=== PATIENT | male | born 1955 | race Caucasian/White ===

== ENCOUNTER 2018-04-10 10:57 | Outpatient (CLI) | payer BC ==
[~2018-04-10] VITALS: Ht 180.3 cm; Wt 118.2 kg
--- NOTE | ~2018-04-10 | HEMODYNAMI ---
PATIENT:SKYLAR OAKLEY MEDICAL RECORD: [id number] : 59 LOCATION:[facility] ADMISSION DATE: 04/10/18 Generatedon:04/10/201814:12 Patient name: SKYLAR OAKLEY Patient #: [id number] SSN: D OB: 1955 Date of study: 04/10/2018 Page: Of Hemodynamic Procedure Report Patient Data Patient Demographics Procedure consent was obtained First Name: SKYLAR Gender: Male Last Name: ADIN : 1955 Patient #: [id number] Age: 62 year(s) Race: Unknown Additional ID: [id number] Contact details Address: [address] [place] [address] [facility] State: [place] City: [place] Zip code: [address] Past Medical History Allergies: No known allergies Admission Admission Data Admission Date: 04/10/2018 Admission Time: 10:57 Procedure Procedure Types Cath Procedure Diagnostic Procedure LHC LHC w/Coronaries Sedation Charges Moderate Sedation up to 15 minutes PCI Procedure Coronary Stent Coronary Stent Initial Procedure Description Procedure Date Procedure Date: 04/10/2018 Procedure Start Time: 13:46 Procedure End Time: 14:12 Procedure Staff Name Function Lucas Sin MD Performing Physician Laurel Sotomayor RT Monitor Abebe Roth RN Nurse Norma Albert RT Scrub Gabriel Kirby RT Office Equipment Mechanic Procedure Data Cath Procedure Fluoroscopy Diagnostic fluoroscopy Total fluoroscopy Time: 4.6 time: 4.6 min min Diagnostic fluoroscopy Total fluoroscopy dose: dose: 1297 mGy 1297 mGy Contrast Material Contrast Material Type Amount (ml) Isovue 300 110 Entry Location Entry Primary Successful Side Size Upsize Upsize Entry Closure Porras ccessful Closure Location (Fr) 1 (Fr) 2 (Fr) Remarks Device Remarks Radial Right 6 Fr Mechanical artery Short Compression Estimated blood loss: 10 ml Diagnostic catheters Device Type Used For End Catheter Placement DIAGNOSTIC Octaviano 110cm LV Angiography 5Fr catheter ([id number]) DIAGNOSTIC Octaviano 110cm Left Coronary 5Fr catheter ([id number]) Angiography DIAGNOSTIC Octaviano 110cm Right Coronary 5Fr catheter ([id number]) Angiography Procedure Complications No complications Procedure Medications Medication Administration Route Dosage 0.9% NaCl I.V. 100 ml/hr Oxygen etCO2 Nasal cannula 2 l/min Heparin Flush Bag added to field 2 bags (1000units/500ml NS) Lidocaine 2% added to field 20 Radial Cocktail added to field 1 syringe (Verapomil 2mg/Nitro 400mcg/Heparin 1500units) Versed I.V. 2 mg Fentanyl I.V. 100 mcg Radial Cocktail I.A. 1 syringe (Verapomil 2mg/Nitro 400mcg/Heparin 1500units) Heparin Bolus I.V. 19680 units Brilinta P.O. 180 mg Hemodynamics Rest Heart Rate: 68 (bpm) Pressure Samples Time Site Value (mmHg) Purpose Heart Use Rate(bpm) 13:49 LV 157/-12,7 EDP 77 13:50 AO 109/67(85) Pullback 69 13:50 LV 155/-4,14 Pullback 69 Gradients Valve Time Site 1 Site 2 Mean SEP/DFP Peak To Heart Use (mmHg) (sec/min) Peak Rate (mmHg) (bpm) Aortic 13:50 LV AO 15 15 46 69 155/-4,14 109/67(85) Calculations Valve P-P Mean Valve Index Valve Source Name Gradient Area Flow (cm2) Aortic 46 15 46 15 Snapshots Pre Cath Intra NCS Post Cath Vital Signs Time Heart Resp SPO2 etCO2 NIBP (mmHg) Rhythm Pain Sedation Rate (ipm) (%) (mmHg) Status Level (bpm) 13:36:55 64 19 98 0 131/89(106) NSR 0 (11) 10(A) , No pain 13:41:36 67 17 99 0 126/87(107) NSR 0 (11) 10(A) , No pain 13:46:18 68 12 92 29.2 124/71(94) NSR 0 (11) 10(A) , No pain 13:50:57 76 18 89 32.3 118/71(91) NSR 0 (11) 10(A) , No pain 13:55:40 73 15 93 36.8 119/65(90) NSR 0 (11) 9(A) , No pain 14:00:20 73 19 95 36.8 120/65(95) NSR 0 (11) 9(A) , No pain 14:04:59 69 19 96 35.3 114/63(99) NSR 0 (11) 10(A) , No pain 14:09:37 69 18 97 33 115/68(93) NSR 0 (11) 10(A) , No pain Medications Time Medication Route Dose Verified Delivered Reason Not es Effectiveness by by 13:38:24 0.9% NaCl I.V. 100 Abebe Abebe Per physician ml/hr Gonzalez Roth RN RN 13:38:33 Oxygen etCO2 2 l/min Abebe Abebe Per physician Nasal Gonzalez Roth cannula RN RN 13:38:43 Heparin Flush added 2 bags Abebe Abebe used for Bag to Lorigan Gonzalez procedure (1000units/500ml field RN RN NS) 13:38:52 Lidocaine 2% added 20ml Abebe Abebe for local to vial Lorigan Lorigan anesthetic field RN RN 13:39:06 Radial Cocktail added 1 Abebe Abebe used for (Verapomil to syringe Lorigan Gonzalez procedure 2mg/Nitro RN RN 400mcg/Heparin 1500units) 13:44:41 Versed I.V. 2 mg Abebe Abebe for sedation Gonzalez Roth RN RN 13:44:54 Fentanyl I.V. 100 mcg Abebe Abebe for sedation Gonzalez Roth RN RN 13:47:30 Radial Cocktail I.A. 1 Abebe Lucas for (Verapomil syringe Gonzalez Sin MD vasodilation 2mg/Nitro RN 400mcg/Heparin 1500units) 14:00:45 Heparin Bolus I.V. 12,000 Abebe Lucas for units Gonzalez Sin MD anticoagulation RN 14:09:10 Brilinta P.O. 180 mg Abebe Lucas for Gonzalez Sin MD antiplatelet RN therapy Procedure Log Time Note 13:24:28 Gabriel Kirby RT(R) sent for patient. Start room use. 13:24:29 Time tracking: Regular hours (M-F 7:00 - 5:00) 13:24:33 Plan of Care:Hemodynamics will remain stable., Cardiac rhythm will remain stable., Comfort level will be maintained., Respiratory function will remain adequate., Patient/ family verbilizes understanding of procedure., Procedure tolerated without complication., Recovers from procedure without complications.. 13:29:55 Patient received from Pre/Post Procedure Room to [facility] 1 Alert and oriented. Sushantsferred to table in Supine position. 13:29:56 Warm blankets applied, and bandar hugger turned on for patient comfort. 13:29:56 Correct patient and procedure confirmed by team. 13:29:57 Signed procedure consent form obtained from patient. 13:29:58 ECG and BP/O2 sat monitors applied to patient. 13:29:59 Full Disclosure recording started 13:30:15 H&P Date Dictated: 04/04/2018 Within 30 days and on chart., H&P Addendum completed by physician on day of procedure. (MUST COMPLETE FOR ALL OUTPATIENTS). 13:30:16 Pre-procedure instructions explained to patient. 13:30:17 Pre-op teaching completed and patient verbalized understanding. 13:30:19 Family in patients room. 13:30:21 Patient NPO since Midnight. 13:36:04 Vital chart was started 13:38:24 0.9% NaCl 100 ml/hr I.V. was administered by Abebe Roth RN; Per physician; 13:38:33 Oxygen 2 l/min etCO2 Nasal cannula was administered by Abebe Roth RN; Per physician; 13:38:43 Heparin Flush Bag (1000units/500ml NS) 2 bags added to field was administered by Abebe Roth RN; used for procedure; 13:38:52 Lidocaine 2% 20ml vial added to field was administered by Abebe Roth RN; for local anesthetic; 13:39:06 Radial Cocktail (Verapomil 2mg/Nitro 400mcg/Heparin 1500units) 1 syringe added to field was administered by Abebe Roth RN; used for procedure; 13:41:46 Baseline sample Acquired. 13:41:48 Rhythm: sinus rhythm 13:41:57 Patient allergic to No known allergies 13:41:59 Is the patient allergic to Iodine/contrast media? No. 13:42:01 Is patient on blood thinner?No 13:42:02 Patient diabetic? Yes. 13:42:03 If diabetic: On Metformin? No 13:42:06 Previous problem with sedation/anesthesia? No ? 13:42:08 Snore? Yes 13:42:09 Sleep apnea? No 13:42:10 Deviated septum? No 13:42:10 Opens mouth fully? Yes 13:42:11 Sticks out tongue? Yes 13:42:13 Airway obstruction? No ? 13:42:15 Dentures? No ? 13:42:18 Pre procedure: right dorsailis pedis pulse 2+ Normal; easily identifiable; not easily obliterated 13:42:20 Modified Kit's test Ulnar < 7 seconds 13:42:22 Patient pain scale 0/10 ?. 13:42:25 IV patent on arrival in left hand with 0.9% NaCl at [facility]. 13:42:27 Lab results completed and on chart. 13:42:36 Right Radial & Right Groin area was prepped with chlora-prep and draped in sterile fashion 13:42:38 Alarms reviewed by R. N. 13:42:39 Sharps counted by scrub and verified by R.N. 13:42:40 Final Timeout: patient, procedure, and site verified with staff and physician. All members of the team are in agreement. 13:42:41 Right Radial site verified by team. 13:42:44 Physical assessment completed. ASA score P 2 - A patient with mild systemic disease as per Lucas Sin MD. 13:42:47 Sedation plan: IV Moderate Sedation Medication:Versed, Fentanyl 13:42:51 Use device set Radial Dx or PCI 13:42:52 ACIST Syringe (67762) opened to sterile field. 13:42:53 Medline Cath Pack ([id number]) opened to sterile field. 13:42:53 Bag Decanter (2002S) opened to sterile field. 13:42:54 DIAGNOSTIC WIRE .035 260cm J wire (383263) opened to sterile field. 13:42:54 ACIST Hand Control (62441) opened to sterile field. 13:42:54 ACIST Manifold (68934) opened to sterile field. 13:42:56 SHEATH 6Fr Prelude Radial ([id number]) opened to sterile field. 13:44:07 Zero performed for pressure channel P1 13:44:41 Versed 2 mg I.V. was administered by Abebe Roth RN; for sedation; 13:44:54 Fentanyl 100 mcg I.V. was administered by Abebe Roth RN; for sedation; 13:46:10 Procedure started. 13:46:45 Local anesthetic to right radial artery with Lidocaine 2% by Lucas Sin MD.INITIAL ACCESS ONLY 13:47:16 A 6 Fr Short sheath was inserted into the Right Radial artery 13:47:30 Radial Cocktail (Verapomil 2mg/Nitro 400mcg/Heparin 1500units) 1 syringe I.A. was administered by Lucas Sin MD; for vasodilation; 13:48:44 A DIAGNOSTIC Octaviano 110cm 5Fr catheter (558008) was advanced over the wire and used for LV Angiography. 13:49:56 LV gram done using ABBOTT 13:49:57 LV hemodynamics recorded. 13:50:00 Injector settings: Ml/sec: 5, Volume: 15, 13:50:11 EF : 60 % 13:50:51 A DIAGNOSTIC Octaviano 110cm 5Fr catheter ([id number]) was advanced over the wire and used for Left Coronary Angiography. 13:53:52 A DIAGNOSTIC Octaviano 110cm 5Fr catheter ([id number]) was advanced over the wire and used for Right Coronary Angiography. 13:55:41 Catheter removed. 13:55:51 [place] IVUS Catheter (21854A) opened to sterile field. 13:55:57 Use device set [facility] PCI 13:56:00 TUBING High Pressure Extension Tubing (Sin) ([id number]) opened to sterile field. 13:56:01 INFLATOR Merit BasixCompak (BS7316) opened to sterile field. 13:56:06 BMW 300cm [place] 2 J wire ([id number]) opened to sterile field. 13:58:49 6 Fr XBLAD 3.5 guide catheter was inserted over the wire 14:00:45 Heparin Bolus 12,000 units I.V. was administered by Lucas Sin MD; for anticoagulation; 14:00:53 BMW wire advanced. 14:06:36 Place stent Inflation Number: 1 A ZAN RX 3.0 x 15 stent ([id number]) was prepped and advanced across the Mid LAD. The stent was deployed at 14 RASHIDA for 0:22 (min:sec). 14:07:10 Stent catheter was removed intact over wire. 14:07:11 Wire removed. 14:07:12 Guide catheter removed. 14:07:23 Sheath removed intact; hemostasis achieved with Mechanical Compression to the Right Radial artery. 14:07:55 Procedure ended.(Physican Out) 14:07:58 Fluoroscopy time 04.60 minutes. 14:08:03 Flurop Dose total: 1297 14:08:03 Fluoroscopy dose: 1297 mGy 14:08:06 Contrast amount:Isovue 300 110ml. 14:08:07 Sharps counted by scrub and verified by R.N. 14:08:09 TR band inflated with 12cc of air. 14:08:10 Insertion/operative site no bleeding no hematoma. 14:08:19 Post right radial artery:stable, clean and dry 14:08:21 Post Procedure Pulses reassessed and unchanged 14:08:23 Post-procedure physical assessment completed. ASA score P 2 - A patient with mild systemic disease as per Lucas Sin MD. 14:08:25 Post procedure rhythm: unchanged. 14:08:27 Estimated blood loss: 10 ml 14:08:45 TR BAND Standard ([id number]) opened to sterile field. 14:09:10 Brilinta 180 mg P.O. was administered by Lucas Sin MD; for antiplatelet therapy; 14:09:44 Post procedure instruction explained to patient.Patient verbalizes understanding. 14:09:46 Patient needs reinforcement of post procedure teaching. 14:10:37 Procedure type changed to Cath procedure, Diagnostic procedure, LHC, LHC w/Coronaries, Sedation Charges, Moderate Sedation up to 15 minutes, PCI procedure, Coronary Stent, Coronary Stent Initial 14:10:42 Procedure Complication : No complications 14:10:45 See physician's report for complete and final results. 14:11:26 GUIDE 6FR XBLAD 3.5 catheter ([id number]) opened to sterile field. 14:11:43 Procedure and supply charges have been captured, reviewed, submitted and are correct. 14:11:49 Vital chart was stopped 14:11:50 Report given to Pre/Post Procedure Room. 14:11:53 Patient transfered to Pre/Post Procedure Room with Stretcher. 14:12:02 Procedure ended. 14:12:02 Full Disclosure recording stopped 14:12:05 End room use (Document Last) Intervention Summary Intervention Notes Time ActionType Lesion and Equipment Used Action# Pressure Duration Attributes 14:06:36 Place stent Mid LAD ZAN RX 3.0 x 1 14 00:22 15 stent ([id number]) Device Usage Item Name Manufacture Quantity Catalog Number Hospital Part Current Minimal Lot# / Charge Number Stock Stock Serial# Code ACIST Syringe Acist 1 [id number] 546448 752340 103959 20 (38278) Medical Systems Inc Medline Cath Cardinal 1 [id number] 457012 34897 117169 5 Pack Health ([id number]) Bag Decanter Microtek 1 2001S 720196 49785 445327 5 (2001S) Medical Inc. DIAGNOSTIC WIRE St Darryl 1 617951 203865 217699 104853 30 .035 260cm J wire (104638) ACIST Hand Acist 1 58161 857078 532685 452160 5 Control (98367) Medical Systems Inc ACIST Manifold Acist 1 46942 930462 530625 449886 5 (20046) Medical Systems Inc SHEATH 6Fr Merit 1 [id number] 908962 358978 459418 5 Prelude Radial Medical ([id number]) DIAGNOSTIC Terumo 1 40-7751 829976 043443 451891 5 Octaviano 110cm 5Fr catheter (089668) Buchanan Buchanan 1 17132T 263484 503397 643818 8 [place] IVUS Catheter (11342T) TUBING High Merit 1 [id number] 599242 72694 773688 10 Pressure Medical Extension Tubing (Sin) ([id number]) INFLATOR Merit Merit 1 SW0666 479760 167071 305561 15 BasixCompak Medical (XQ3498) BMW 300cm Real 1 [id number] 950128 149850 883599 5 [place] 2 J Vascular wire ([id number]) ZAN RX 3.0 x Medtronic 1 [id number] 075199 9003719 679179 5 [id number] 15 stent ([id number]) TR BAND Terumo 1 [id number] 002272 807220 810440 40 Standard ([id number]) GUIDE 6FR XBLAD Cardinal 1 [id number] 146449 135744 232236 10 3.5 catheter Tethys [employer] ([id number]) Signature Audit [place] Stage Time Signature Unsigned Intra-Procedure 04/10/2018 Laurel 2:12:15 PM Counts RT(R) Signatures Monitor : Laurel Signature : Counts RT Date : Time : [id number] [place] [address]
[2018-04-10] MEDS ORDERED: NORVASC5 MG PO (11:15)
[2018-04-10] MEDS ORDERED: LIPITOR20 MG PO (11:18)
[2018-04-10] MEDS ORDERED: HYZAAR 100-25 T1 TAB PO (11:18)
[2018-04-10 11:25] VITALS: BP 139/87; Ht 180.3 cm; Wt 118.2 kg
[2018-04-10 11:40] LABS: BASOPHILS 0.3 % (0-2); HEMATOCRIT 44.9 % (42.0-54.0); HEMOGLOBIN 15.6 g/dL (13.5-17.5); IMMATURE GRANULOCYTES 1.6 % (0-5); LYMPHOCYTES 31.9 % (15-50); MCH 32.7 pg (26.0-34.0); MCHC 34.7 g/dL (31.0-37.0); MCV 94.1 fL (80.0-100.0); MEAN PLATELET VOLUME 9.5 fL (7.4-10.4); MONOCYTES 12.7 % (2-11); NEUTROPHILS 52.5 % (40-80); PLATELET COUNT 160 10x3/uL (130-400); RBC 4.77 10x6/uL (4.20-6.10); RDW 12.1 % (11.5-14.5); WBC 5.7 10x3/uL (4.8-10.8)
[2018-04-10 11:49] LABS: CALC OSMOLALITY 279 mosm/kg (275-300); CALCIUM 8.9 mg/dL (8.5-10.1); CARBON DIOXIDE 27.5 mmol/L (21.0-32.0); CHLORIDE - SERUM 105 mmol/L (98-107); GLUCOSE 102 mg/dL (74-106); POTASSIUM - SERUM 3.6 mmol/L (3.5-5.1); SODIUM 140 mmol/L (136-145); UREA NITROGEN 14 mg/dL (7-18); eGFR NON AFRICAN AMERICAN 81 mL/min (90-120)
[2018-04-10] MEDS ORDERED: BRILINTA90 MG PO (14:19)
[2018-04-10] MEDS ORDERED: BAYER CHEWABLE81 MG PO (14:26)
== END 2018-04-10 18:40 | disposition home or self-care (01) ==
LOC: D.CATH 10:57
PROVIDERS: Internal Medicine Cardiovascular Disease
DX: I25.110 Atherosclerotic heart disease of native coronary artery with unstable angina pectoris (principal); Z01.812 Encounter for preprocedural laboratory examination

== ENCOUNTER 2019-05-24 10:54 | Outpatient (CLI) | payer MEDICARE, BC ==
[~2019-05-24] VITALS: Ht 180.3 cm; Wt 115.5 kg
--- NOTE | ~2019-05-24 | HEMODYNAMI ---
PATIENT:SKYLAR OAKLEY MEDICAL RECORD: [id number] : 59 LOCATION:[facility] ADMISSION DATE: 05/24/19 Generatedon:05/24/201914:50 Patient name: SKYLAR OAKLEY Patient #: [id number] SSN: [id number] : 1955 Date of study: 05/24/2019 Page: Of Hemodynamic Procedure Report Patient Data Patient Demographics Procedure consent was obtained First Name: SKYLAR Gender: Male Last Name: ADIN : 1955 Patient #: [id number] Age: 63 year(s) Race: SSN: [id number] Additional ID: [id number] Contact details Address: [address] [place] [address] ROAD State: [place] City: [place] Zip code: [address] Past Medical History Allergies: No known allergies Admission Admission Data Admission Date: 05/24/2019 Admission Time: 10:54 Height (in.): 70.87 BSA: 2.33 (m2) Height (cm.): 180 BMI: 35.49 (kg/m2) Weight (lbs.): 253.53 Weight (kg.): 115 Lab Results Lab Result Date: 05/24/2019 Lab Result Time: 0:00 Biochemistry Name Units Result Min Max BUN mg/dl 14 --(--*-)-- 7 18 Creatinine mg/dl 0.9 --(-*--)-- 0.6 1.3 eGFR ml/min 90 --(*---)-- 90 120 NONAFRICAN CBC Name Units Result Min Max Hematocrit % 45.8 --(-*--)-- 42 54 Hemoglobin g/dl 15.8 --(--*-)-- 13.5 17.5 Procedure Procedure Types Cath Procedure Diagnostic Procedure PPM/ICD PPM Dual Implant Sedation Charges Moderate Sedation up to 45 minutes Procedure Description Procedure Date Procedure Date: 05/24/2019 Procedure Start Time: 13:55 Procedure Staff Name Function Jamari Park MD Performing Physician Ever Colon MD Assisting physician Norma Albert RT Monitor Susan De La Cruz RT Monitor Enriqueta Horton RN Nurse Molly Zamora RT Scrub Procedure Data Cath Procedure Fluoroscopy Diagnostic fluoroscopy Total fluoroscopy Time: time: 10.6 min 10.6 min Diagnostic fluoroscopy Total fluoroscopy dose: 450 dose: 450 mGy mGy Estimated blood loss: 10 ml Procedure Complications No complications Procedure Medications Medication Administration Route Dosage Oxygen etCO2 Nasal cannula 2 l/min Ancef (1Gm/50ml NS) I.V.P.B 1 g Ancef Irrigation Topical 1 g (1gm/500ml NS) Lidocaine 1% added to field 20 0.9% NaCl I.V. Versed I.V. 2 mg Fentanyl I.V. 100 mcg Versed I.V. 2 mg Fentanyl I.V. 100 mcg Versed I.V. 1 mg Versed I.V. 1 mg Versed I.V. 1 mg Fentanyl I.V. 50 mcg Hemodynamics Rest BSA: 2.33 (m2) O2 Consumption: Estimated: 316.88 (ml/min) O2 Consumption indexed : Estimated:136 (ml/min/m) Pre Cath Intra NCS Post Cath Vital Signs Time Heart Resp SPO2 etCO2 NIBP (mmHg) Rhythm Pain Sedation Rate (ipm) (%) (mmHg) Status Level (bpm) 13:46:08 72 20 98 34.3 150/79(104) NSR (Missing) 10(A) 13:51:23 39 20 97 13.4 133/75(113) SB (Missing) 10(A) 13:56:26 40 14 97 25.3 141/76(108) SB (Missing) 9(A) 14:01:21 34 18 97 12.6 140/79(131) SB (Missing) 9(A) 14:06:42 73 26 97 19.4 133/81(120) NSR (Missing) 9(A) 14:11:14 39 20 98 11.2 134/73(100) SB (Missing) 9(A) 14:17:42 40 17 98 22.4 137/72(101) SB (Missing) 9(A) 14:24:42 54 18 97 27.6 125/72(87) NSR (Missing) 9(A) 14:28:43 39 17 98 12.6 132/71(99) NSR (Missing) 9(A) 14:34:20 69 13 96 11.1 130/81(103) NSR (Missing) 9(A) 14:40:10 71 14 98 25.3 135/86(101) NSR (Missing) 10(A) Medications Time Medication Route Dose Verified Delivered Reason Notes Effectiv eness by by 13:38:50 Ancef I.V.P.B 1 g Jamari Buffie used for (1Gm/50ml Xavier Horton mds coordinator NS) 13:44:40 Oxygen etCO2 2 Jamari Misaelie used for Nasal l/min Xavier Horton mds coordinator cannula 13:44:59 Ancef Topical 1 g Jamari Douglasie used for Irrigation Xavier Horton mds coordinator (1gm/500ml NS) 13:45:10 Lidocaine added 20ml Jamari Curtis for local 1% to vial St Bandar Colon MD anesthetic field 13:45:20 0.9% NaCl I.V. kvo Jamari Robison Per ml/hr St Bandar Horton RN physician 13:52:35 Versed I.V. 2 mg Jamari Misaelie for Xavier Horton RN sedation 13:52:42 Fentanyl I.V. 100 Jamari Buffie for mcg Xavier Horton RN sedation 13:55:49 Versed I.V. 2 mg Jamari Buffie for Xavier Horton RN sedation 13:55:55 Fentanyl I.V. 100 Jamari Buffie for [facility] [place] Xavier Horton RN sedation 14:08:56 Versed I.V. 1 mg Jamari Douglasie for Xavier Horton RN sedation 14:19:49 Versed I.V. 1 mg Jamari Douglasie for Xavier Horton RN sedation 14:31:13 Versed I.V. 1 mg Jamari Buffie for Xavier Horton RN sedation 14:33:17 Fentanyl I.V. 50 Jamari Buffie for [facility] [place] Xavier Horton RN sedation Procedure Log Time Note 13:16:36 Informed consent obtained and on chart 13:18:52 Enriqueta Horton RN sent for patient. Start room use. 13:18:54 Time tracking: Regular hours (M-F 7:00 - 5:00) 13:19:01 Plan of Care:Hemodynamics will remain stable., Cardiac rhythm will remain stable., Comfort level will be maintained., Respiratory function will remain adequate., Patient/ family verbilizes understanding of procedure., Procedure tolerated without complication., Recovers from procedure without complications.. 13:19:10 H&P Date Dictated: 05/24/2019 H&P Addendum completed by physician on da y of procedure. (MUST COMPLETE FOR ALL OUTPATIENTS), New H&P dictated by physician.. 13:19:12 Pre-procedure instructions explained to patient. 13:19:14 Pre-op teaching completed and patient verbalized understanding. 13:19:16 Family in waiting room. 13:19:19 Patient NPO since Midnight. 13:19:27 Patient allergic to No known allergies 13:19:38 Is the patient allergic to Iodine/contrast media? No. 13:22:56 Lab Result : Hemoglobin 15.8 g/dl 13::56 Lab Result : Hematocrit 45.8 % 13:22:56 Lab Result : eGFR NONAFRICAN 90 ml/min 13:22:56 Lab Result : BUN 14 mg/dl 13:22:56 Lab Result : Creatinine 0.9 mg/dl 13:23:17 Medtronic representative personal service ANN CAMERON present for procedure. 13:23:48 Patient Height : 70.87 inches 13:23:57 Patient Weight : 253.53 lbs 13:26:00 Use device set TISH PPM 13:26:06 2-0 Ticron Multipack ([id number]) opened to sterile field. 13:26:07 3-0 Vicryl Single Pack [id number] opened to sterile field. 13:26:08 5-0 Monocryl PS2 [id number] opened to sterile field. 13:26:10 Cautery Tip Petroleum Production Engineer opened to sterile field. 13:26:12 Cautery Pushbutton Pencil opened to sterile field. 13:26:14 Mepilex Dressing ([id number]) opened to sterile field. 13:26:19 Immobilizer Large opened to sterile field. 13:27:[address] Generator [id number] opened to sterile field. 13:27:46 Medtronic 4074-58 PPM Lead opened to sterile field. 13:27:47 Medtronic 4574-53 PPM Lead opened to sterile field. 13:30:13 Patient received from Pre/Post Procedure Room to [facility] 3 Alert and oriented. Tansferred to table in Supine position. 13:31:58 Warm blankets applied, and bandar hugger turned on for patient comfort. 13:32:00 Correct patient and procedure confirmed by team. 13:32:39 Is patient on blood thinner?No 13:32:42 Patient diabetic? No. 13:32:44 ----Pre-sedation anethsthesia assessment.---- 13:32:49 Previous problem with sedation/anesthesia? No ? 13:32:52 Snore? No 13:32:54 Sleep apnea? No 13:32:57 Deviated septum? No 13:33:00 Opens mouth fully? Yes 13:33:01 Sticks out tongue? Yes 13:33:05 Airway obstruction? No ? 13:33:10 Dentures? No ? 13:33:14 - 13:34:52 Patient pain scale 0/10 ?. 13:35:10 IV patent on arrival in left forearm with 0.9% NaCl at KVO. 13:35:20 Lab results completed and on chart. 13:35:31 Left chest area was prepped with chlora-prep and draped in sterile fashion 13:35:33 Alarms reviewed by R. N. 13:35:35 Sharps counted by scrub and verified by R.N. 13:38:50 Ancef (1Gm/50ml NS) 1 g I.V.P.B was administered by Enriqueta Horton RN; use d for procedure; Verbal order read back and verified. 13:41:57 Vital chart was started 13:44:40 Oxygen 2 l/min etCO2 Nasal cannula was administered by Enriqueta Horton RN; used for procedure; Verbal order read back and verified. 13:44:59 Ancef Irrigation (1gm/500ml NS) 1 g Topical was administered by Enriqueta Horton RN; used for procedure; Verbal order read back and verified. 13:45:10 Lidocaine 1% 20ml vial added to field was administered by Ever Colon MD; for local anesthetic; Verbal order read back and verified. 13:45:20 0.9% NaCl kvo ml/hr I.V. was administered by Enriqueta Horton RN; Per physician; Verbal order read back and verified. 13:49:57 Pre sharps counted by scrub and verified by RN: Sutures: 7; Sponges: 5; Stick needles: 2; Skin needles: 2; Blade: 1; Cautery: 1 13:50:03 Grounding pad site Left thigh. 13:50:07 Grounding pad site free from injury. 13:50:22 Physician arrived 13:50:22 --------ALL STOP TIME OUT------ 13:50:23 Final Timeout: patient, procedure, and site verified with staff and physician. All members of the team are in agreement. 13:50:28 Left chest site verified by team. 13:50:38 Fire Safety Assessment: A--An alcohol-based skin anteseptic being used preoperatively., B--The operative or invasive procedure is being performed above the xiphoid process or in the oropharynx., C--Open oxygen or nitrous oxide is being used. 13:50:44 Physical assessment completed. ASA score P 2 - A patient with mild systemic disease as per Jamari Park MD. 13:50:51 Sedation plan: IV Moderate Sedation Medication:Versed, Fentanyl 13:52:35 Versed 2 mg I.V. was administered by Enriqueta Horton RN; for sedation; Verbal order read back and verified. 13:52:42 Fentanyl 100 mcg I.V. was administered by Enriqueta Horton RN; for sedation; Verbal order read back and verified. 13:55:04 Procedure started. 13:55:04 Full Disclosure recording started 13:55:29 Lidocaine 1% was administered to left subclavicular area by Ever Colon MD . 13:55:49 Versed 2 mg I.V. was administered by Enriqueta Horton RN; for sedation; Verbal order read back and verified. 13:55:55 Fentanyl 100 mcg I.V. was administered by Enriqueta Horton RN; for sedation; Verbal order read back and verified. 13:57:43 Incision made to left subclavicular area. 14:00:02 Generator pocket made/opened. 14:01:30 Left subclavian vein accessed with 7Fr Peel Away Sheath. 14:01:37 Left subclavian vein accessed with 7Fr Peel Away Sheath. 14:02:55 Ventricular lead inserted and advanced. 14:03:18 Atrial lead inserted and advanced. 14:08:56 Versed 1 mg I.V. was administered by Enriqueta Horton RN; for sedation; Verbal order read back and verified. 14:12:11 Ventricular lead positioned. 14:12:16 Ventricular lead tested. 14:16:47 Atrial lead positioned. 14:16:50 Atrial lead tested. 14:17:56 Peel-a-way sheath was split and removed. 14:18:03 Peel-a-way sheath was split and removed. 14:18:43 Atrial lead attachment was completed with 2-0 ticron. 14:18:50 Ventricular lead attachment was completed with 2-0 ticron. 14:19:49 Versed 1 mg I.V. was administered by Enriqueta Horton RN; for sedation; Verbal order read back and verified. 14:25:32 VENTRICLE LEAD NO LONGER CAPTURING, NEEDS REPOSITIONED. 14:28:28 Ventricular lead dislodged. 14:28:33 Ventricular lead repositioned. 14:31:13 Versed 1 mg I.V. was administered by Enriqueta Horton RN; for sedation; Verbal order read back and verified. 14:33:17 Fentanyl 50 mcg I.V. was administered by Enriqueta Horton RN; for sedation; Verbal order read back and verified. 14:33:22 Ventricular lead tested. 14:34:33 Atrial lead attachment was completed with 2-0 ticron. 14:34:39 Ventricular lead attachment was completed with 2-0 ticron. 14:34:56 PPM Dual was attached to lead(s) and inserted into pocket. 14:35:10 PPM Dual was inserted subcutaneously to left chest. 14:35:15 Device pocket was irrigated with Ancef. 14:37:04 Subcutaneous closure was completed with 3-0 vicryl plus. 14:37:16 Skin closure was completed with 5-0 monocryl. 14:38:59 Parameters-- Generator: Mode: DDDR. Lower Rate: 60bpm. Upper Rate: 120bpm. 14:40:06 Vital chart was stopped 14:40:07 Vital chart was started 14:40:19 Parameters--Ventricular P/R Wave: 8.2mV. Current: 0.1mA; Threshold: .5V ; Impedence: 1054OHMS. 14:41:05 Parameters--Atrial P/R Wave: 2.1mV. Current: 0.1mA; Threshold: 0.3V; Impedence: 628OHMS. 14:41:18 Lt Chest incision was dressed with Mepilex dressing. 14:41:39 Post sharps counted by scrub and verified by RN: Sutures: 7; Sponges: 5 ; Stick needles: 2; Skin needles: 2; Blade: 1; Cautery: 1 14:41:48 Procedure ended.(Physican Out) 14:42:11 Fluoroscopy time 10.60 minutes. 14:42:16 Fluoroscopy dose: 450 mGy 14:42:16 Flurop Dose total: 450 14:42:26 Dose Area Product 5440.18 mGy/cm. 14:42:31 Sharps counted by scrub and verified by R.N. 14:42:48 Post-procedure physical assessment completed. ASA score P 2 - A patient with mild systemic disease as per Jamari Park MD. 14:42:57 Post procedure rhythm: paced 14:43:03 Estimated blood loss: 10 ml 14:43:06 Post procedure instruction explained to patient.Patient verbalizes understanding. 14:43:07 Patient needs reinforcement of post procedure teaching. 14:43:58 Procedure type changed to Cath procedure, Diagnostic procedure, PPM/ICD , PPM Dual Implant, Sedation Charges, Moderate Sedation up to 45 minutes 14:44:44 Procedure and supply charges have been captured, reviewed, submitted an d are correct. 14:44:53 Procedure Complication : No complications 14:45:07 Operative report dictated upon procedure completion. 14:45:09 See physician's report for complete and final results. 14:45:16 Report given to Med II. 14:45:25 Patient transfered to Med II with Bed. 14:46:00 End room use (Document Last) 14:50:37 Vital chart was stopped Device Usage Item Name Manufacture Quantity Catalog Hospital Part Current Minima l Lot# / Serial# Number Charge Number Stock Stock Code 2-0 Ticron Ethicon 2 [id number] [id number] [id number] 5 Multipack ([id number]) 3-0 Vicryl Ethicon 1 [id number] 109043 267614 800163 5 Single Pack [id number] 5-0 Monocryl Ethicon 1 [id number] 794998 319646 167294 5 PS2 Y495G Cautery Tip Microtek 1 [id number] 404469 262083 396707 5 Petroleum Production [employer] Cautery Microtek 1 [id number] 67290 117336 5 Pushbutton [employer] Inc[employer] Pencil Mepilex Cardinal 1 [id number] 928386 031203 190253 5 [facility] ([id number]) Immobilizer Cardinal 1 [id number] 890011 041245 086162 5 [facility] Medtronic Medtronic 1 [id number] 839892 9821093 863465 [id number] [id number] Generator [id number] Medtronic Medtronic 1 4074-58 936369 653231 153410 5 [id number] 4074-58 PPM [id number] Lead Medtronic Medtronic 1 4574-53 956930 174542 837013 5 [id number] 4574-53 PPM [id number] Lead Signature Audit [place] Stage Time Signature Unsigned Intra-Procedure 05/24/2019 Susan 2:49:14 PM Dorothy RT(R) (CV) Intra-Procedure 05/24/2019 Enriqueta Horton RN 2:50:01 PM Intra-Procedure 05/24/2019 Jamari Mason 2:50:35 PM Bandar [address] [place] [address]
[~2019-05-24 10:54] MED LIST: BAYER CHEWABLE81 MG PO; BRILINTA90 MG PO; HYZAAR 100-25 T1 TAB PO; LIPITOR20 MG PO; NORVASC5 MG PO
[2019-05-24] MEDS ORDERED: ZYLOPRIM300 MG PO (11:14)
[2019-05-24 11:31] VITALS: BP 153/93; BMI 35.5
[2019-05-24 11:42] LABS: HEMATOCRIT 45.8 % (42.0-54.0); HEMOGLOBIN 15.8 g/dL (13.5-17.5); MCH 32.9 pg (26.0-34.0); MCHC 34.5 g/dL (31.0-37.0); MCV 95.4 fL (80.0-100.0); MEAN PLATELET VOLUME 10.3 fL (7.4-10.4); RBC 4.8 10x6/uL (4.20-6.10); WBC 6.4 10x3/uL (4.8-10.8)
[2019-05-24 11:50] LABS: APTT 27.8 SECONDS (22.8-39.4); PROTIME 12.7 SECONDS (11.6-15.0)
[2019-05-24 11:55] LABS: CALC OSMOLALITY 281 mosm/kg (275-300); CALCIUM 9.3 mg/dL (8.5-10.1); CARBON DIOXIDE 25.1 mmol/L (21.0-32.0); CHLORIDE - SERUM 104 mmol/L (98-107); CREATININE - SERUM 0.9 mg/dL (0.6-1.3); GLUCOSE 104 mg/dL (74-106); POTASSIUM - SERUM 3.9 mmol/L (3.5-5.1); SODIUM 141 mmol/L (136-145); UREA NITROGEN 14 mg/dL (7-18); eGFR NON AFRICAN AMERICAN > 90 mL/min (90-120)
--- NOTE | 2019-05-24 15:20 | NUR ---
RECEIVED PT FROM [facility] SR VIA BED IN STABLE CONDITION VSS TIESHAG C/D/I TO LT CHEST SLING INTACT TO LT ARM IV PATENT AT KEEP OPEN TO LFA SITE FREE OF REDNESS OR EDEMA TELEMETRY NOTED WITH PACED BEATS RATE 63 NAD NOTED
[2019-05-24 15:29] VITALS: BP 128/89; Ht 180.3 cm; Wt 115.5 kg
[2019-05-24 17:40] VITALS: BP 126/81
--- NOTE | 2019-05-24 19:00 | NUR ---
PT RESTING IN BED.HAS LEFT ARM IN SLING. DRESSING TO LEFT CHEST IS C/D/I. HE DENIES PAIN OR NEEDS. NO DISTRESS NOTED. BED LOW. CALL LIGHT IN REACH.
[2019-05-24 20:00] VITALS: BP 116/73
[2019-05-25 04:30] VITALS: BP 139/82
--- NOTE | 2019-05-25 07:15 | NUR ---
RECEIVED PT IN BED AAOX4 RESP UNLABORED SKIN W/D COLOR WNL DRSG C/D/I TO LT CHEST WITH SLING TO LEFT ARM PACED AT 73 NAD NOTED
--- NOTE | 2019-05-25 09:18 | NUR ---
PATIENT HAS NOT RECEVIED FLU SHOT PRIOR TO ADMISSION. WHEN ASKED, HE WANTS TO FOLLOW UP WITH HIS PRIMARY, DR SALO PRATT.
[2019-05-25 09:39] VITALS: BP 148/91
--- NOTE | 2019-05-25 10:05 | NUR ---
REVIEWED DISCHARGE INSTRUCTIONS WITH PT AND STATE UNDERSTANDING COPY GIVEN DCD SALINE LOCK TO LFA WITH IV CATHETER INTACT SITE FREE OF REDNESS OR EDEMA PT DISCHARGED HOME IN STABLE CONDITION VIA W/C WITH ALL PERSONAL BELONGINGS
--- NOTE | 2019-05-28 13:29 | OP ---
PATIENT NAME: SKYLAR OAKLEY MEDICAL RECORD: [id number] :59 LOCATION:D.CAT ADMISSION DATE: SURGEON: SALO MORELOS MD DATE OF OPERATION: 05/24/2019 PROCEDURE: Lead portion of permanent pacemaker placement. INDICATIONS: Complete heart block. SURGEON: Dr. Colon DESCRIPTION OF PROCEDURE: After left subclavian was cannulated via modified Seldinger technique, first under fluoroscopic guidance, I placed RV lead in the RV apex without difficulty. After adequate R waves and thresholds were obtained, then under fluoroscopic guidance, we placed the right atrial lead in the right atrial appendage without difficulty. After adequate P waves and thresholds were obtained, leads were attached to the appropriate poles of the generator and the pocket was closed via Dr. Colon. IMPRESSION: Successful lead portion of permanent pacer placement. ESTIMATED BLOOD LOSS: Minimal. DISPOSITION: Floor, stable. TRANSINT:[id number] Voice Confirmation ID: [id number] DOCUMENT ID: [id number] SALO MORELOS MD at 1329 CC: [id number] DICTATION DATE: 05/24/19 1445 LIME KILN WORKER HELPER: 05/24/19 2300 DEP CLI 05/25/19 [facility] [address] [place] [address]
--- NOTE | 2019-06-07 13:49 | OP ---
PATIENT NAME: SKYLAR OAKLEY MEDICAL RECORD: [id number] :59 LOCATION:D.CAT ADMISSION DATE: SURGEON: REMIGIO WINSTON MD DATE OF OPERATION: 05/24/2019 PREOPERATIVE DIAGNOSES: 1. Sick sinus syndrome. 2. Coronary artery disease. 3. Hypertension. POSTOPERATIVE DIAGNOSES: 1. Sick sinus syndrome. 2. Coronary artery disease. 3. Hypertension. PROCEDURES: 1. Left subclavian vein dual-lead pacemaker placement. 2. Fluoroscopic interpretation. SURGEON: Dr. Remigio Winston COSURGEON: Dr. Carr REPORT OF PROCEDURE: The patient's left chest was prepped and draped in the sterile fashion. A total of 20 mL of 1% lidocaine with epinephrine was infused into the surrounding tissues. A transverse incision was made on the left superior lateral chest and a subcutaneous pouch was made over the pectoral fascia. A needle was used to cannulate the left subclavian vein times 2 and guidewires were advanced with ease. Fluoro was used to note that the wires were in good position in the venous system. Dilator and trocar devices were placed over the wires and the wires and dilators were removed. The leads were advanced through the trocars until they rest in good position in the superior vena cava. At this point, Dr. Carr positioned the leads appropriately in the atrium and ventricle. Once they were noted to be functioning and then positioned appropriately, then these were sutured into place with 0 Ti-Cron. The leads were affixed to the pacemaker, which was placed into the subcutaneous pouch and sutured to the pectoral fascia with a single interrupted 0 Ti-Cron. We irrigated out the wound with antibiotic solution. The subcutaneous tissues were reapproximated with interrupted 3-0 Vicryl and the skin was closed with running subcutaneous 5-0 Monocryl. COMPLICATIONS: None. CONDITION: Stable. ANESTHESIA: Local MAC. BLOOD LOSS: Minimal. TRANSINT:[id number] Voice Confirmation ID: [id number] DOCUMENT ID: [id number] OPERATIVE REPORT [id number] SKYLAR OAKLEY CHRISTIAN MD at 1349 CC: [id number] DICTATION DATE: 05/24/19 1444 FLANGE TURNER: 05/24/19 2250 DEP CLI 05/25/19 [place] [id number] [place] [id number]
== END 2019-05-25 10:05 | disposition home or self-care (01) ==
LOC: D.CATH 10:54 → D.M2 15:17 → D.CATH 05-25 10:05
PROVIDERS: ATTEND Internal Medicine Interventional Cardiology
DX: I44.2 Atrioventricular block, complete (principal); I49.5 Sick sinus syndrome; I25.10 Atherosclerotic heart disease of native coronary artery without angina pectoris; I10 Essential (primary) hypertension

== ENCOUNTER 2019-05-29 11:20 | Outpatient (CLI) | payer BC ==
[~2019-05-29] VITALS: Ht 180.3 cm; Wt 114.5 kg
--- NOTE | ~2019-05-29 | HEMODYNAMI ---
PATIENT:SKYLAR OAKLEY MEDICAL RECORD: [id number] : 59 LOCATION:DAprilCAT ADMISSION DATE: 05/29/19 Generatedon:05/29/201914:37 Patient name: SKYLAR OAKLEY Patient #: [id number] SSN: [id number] : 1955 Date of study: 05/29/2019 Page: Of Hemodynamic Procedure Report Patient Data Patient Demographics Procedure consent was obtained First Name: SKYLAR Gender: Male Last Name: ADIN : 1955 Patient #: [id number] Age: 63 year(s) Race: SSN: [id number] Additional ID: [id number] Contact details Address: [address] [place] [address] ROAD State: [place] City: [place] Zip code: [address] Past Medical History Allergies: No known allergies Admission Admission Data Admission Date: 05/29/2019 Admission Time: 11:20 Arrival Date: 05/29/2019 Arrival Time: 0:00 Admit Source: Other Insurance Payor: Private health insurance [facility] #: [id number] Height (in.): 70.87 BSA: 2.33 (m2) Height (cm.): 180 BMI: 35.49 (kg/m2) Weight (lbs.): 253.53 Weight (kg.): 115 Lab Results Lab Result Date: 05/29/2019 Lab Result Time: 0:00 Biochemistry Name Units Result Min Max BUN mg/dl 14 --(--*-)-- 7 18 Creatinine mg/dl 0.9 --(-*--)-- 0.6 1.3 eGFR ml/min 90 --(*---)-- 90 120 NONAFRICAN CBC Name Units Result Min Max Hemoglobin g/dl 15.7 --(--*-)-- 13.5 17.5 Procedure Procedure Types Cath Procedure Diagnostic Procedure PPM/ICD Permanent Pacer Lead Repos. Sedation Charges Moderate Sedation up to 30 minutes Procedure Description Procedure Date Procedure Date: 05/29/2019 Procedure Start Time: 13:53 Procedure End Time: 14:32 Procedure Staff Name Function Jamari Park MD Performing Physician Norma Albert RT Monitor Susan De La Cruz RT Monitor Molly Zamora RT Scrub Abebe Roth RN Nurse Ford Duong MD Assisting physician Procedure Data Cath Procedure Fluoroscopy Diagnostic fluoroscopy Total fluoroscopy Time: 1.2 time: 1.2 min min Diagnostic fluoroscopy Total fluoroscopy dose: dose: 102.3 mGy 102.3 mGy Contrast Material Contrast Material Type Amount (ml) Isovue 300 0 Estimated blood loss: 5 ml Procedure Complications No complications Procedure Medications Medication Administration Route Dosage 0.9% NaCl I.V. 100 ml/hr Oxygen etCO2 Nasal cannula 2 l/min Lidocaine 1% added to field 20 Bupivacaine 0.5% added to field 10 ml Ancef (1Gm/50ml NS) I.V.P.B 1 g Ancef Irrigation Topical 1 g (1gm/500ml NS) Versed I.V. 2 mg Fentanyl I.V. 100 mcg Versed I.V. 2 mg Fentanyl I.V. 100 mcg Hemodynamics Rest BSA: 2.33 (m2) HGB: 15.7 (g/dl) O2 Consumption: Estimated: 254.87 (ml/min) O2 Co nsumption indexed: Estimated:109.39 (ml/min/m) Heart Rate: 49 (bpm) Snapshots Pre Cath Intra NCS Post Cath Vital Signs Time Heart Resp SPO2 etCO2 NIBP (mmHg) Rhythm Pain Sedation Rate (ipm) (%) (mmHg) Status Level (bpm) 13:23:03 48 19 98 0 154/82(115) 2 0 (11) 10(A) degree , No AV pain Block Type II 13:28:09 48 16 98 0 140/82(127) 2 0 (11) 10(A) degree , No AV pain Block Type II 13:33:02 46 17 91 30.6 144/76(108) 2 0 (11) 10(A) degree , No AV pain Block Type II 13:37:16 44 16 93 9.7 134/80(114) 2 0 (11) 10(A) degree , No AV pain Block Type II 13:41:26 44 12 97 32.8 137/77(100) 2 0 (11) 10(A) degree , No AV pain Block Type II 13:45:38 45 18 97 32.8 131/76(101) 2 0 (11) 10(A) degree , No AV pain Block Type II 13:49:50 45 18 97 35.1 138/73(106) 2 0 (11) 10(A) degree , No AV pain Block Type II 13:54:02 46 18 98 32.8 141/77(124) 2 0 (11) 10(A) degree , No AV pain Block Type II 13:58:16 45 15 96 37.3 140/72(102) 2 0 (11) 9(A) degree , No AV pain Block Type II 14:02:34 44 15 95 32.8 133/63(102) Paced 0 (11) 9(A) , No pain 14:06:44 76 17 94 32.8 142/80(113) Paced 0 (11) 9(A) , No pain 14:10:55 79 17 97 33.6 136/80(128) Paced 0 (11) 10(A) , No pain 14:15:05 79 18 96 36.5 128/83(103) Paced 0 (11) 10(A) , No pain 14:19:11 81 16 96 35.8 124/79(97) Paced 0 (11) 10(A) , No pain 14:23:15 80 19 96 32.1 126/86(105) Paced 0 (11) 10(A) , No pain 14:27:19 79 17 97 35.8 127/86(105) Paced 0 (11) 10(A) , No pain 14:31:22 83 12 97 32.8 127/87(100) Paced 0 (11) 10(A) , No pain Medications Time Medication Route Dose Verified Delivered Reason Notes Effectiv eness by by 13:33:37 0.9% NaCl I.V. 100 Abebe Abebe Per ml/hr Gonzalez Roth physician RN RN 13:33:47 Oxygen etCO2 2 Abebe Abebe for low 02 Nasal l/min Gonzalez Roth sats cannula RN RN 13:34:17 Lidocaine added 20ml Abebe Abebe for local 1% to vial Jenaeigan Jeneaigan anesthetic field ALONSO RN 13:34:46 Bupivacaine added 10 ml Abebe Abebe for local 0.5% to Lorigan Lorigan anesthetic field ALONSO RN 13:35:05 Ancef I.V.P.B 1 g Abebe Abebe Per (1Gm/50ml Lorigan Lorigan physician NS) RN RN 13:35:20 Ancef Topical 1 g Abebe Abebe used for Irrigation Lorigan Lorigan procedure (1gm/500ml RN RN NS) 13:51:33 Versed I.V. 2 mg Abebe Abebe for Lorigan Lorigan sedation RN RN 13:51:45 Fentanyl I.V. 100 Abebe Abebe for mcg Lorigan Lorigan sedation RN RN 13:54:10 Versed I.V. 2 mg Abebe Abebe for Lorigan Lorigan sedation RN RN 13:54:17 Fentanyl I.V. 100 Abebe Abebe for mcg Lorigan Lorigan sedation RN asset protection lead Log Time Note 13:11:01 Abebe Roth RN sent for patient. Start room use. 13:11:03 Procedure Status Elective Heart Cath (OP). 13:12:20 Time tracking: Regular hours (M-F 7:00 - 5:00) 13:12:32 Plan of Care:Hemodynamics will remain stable., Cardiac rhythm will remain stable., Comfort level will be maintained., Respiratory function will remain adequate., Patient/ family verbilizes understanding of procedure., Procedure tolerated without complication., Recovers from procedure without complications.. 13:13:45 Lab Result : eGFR NONAFRICAN 90 ml/min 13:13:45 Lab Result : Hemoglobin 15.7 g/dl 13:13:45 Lab Result : BUN 14 mg/dl 13:13:45 Lab Result : Creatinine 0.9 mg/dl 13:14:14 Informed consent obtained and on chart 13:15:09 Arrival Date: 05/29/2019 12:00:00 AM 13:15:45 Insurance Payor : Private health insurance 13:15:57 Patient Height : 70.87 inches 13:16:02 Patient Weight : 253.53 lbs 13:16:13 Admit Source: Other 13:16:59 Patient received from Pre/Post Procedure Room to CCL 3 Alert and oriented. Tansferred to table in Supine position. 13:17:01 Warm blankets applied, and bandar hugger turned on for patient comfort. 13:17:02 Correct patient and procedure confirmed by team. 13:17:03 ECG and BP/O2 sat monitors applied to patient. 13:21:52 Vital chart was started 13:21:58 Baseline sample Acquired. 13:22:08 Rhythm: sinus bradycardia 13:22:11 Full Disclosure recording started 13:22:13 - 13::22 H&P Date Dictated: 05/29/2019 H&P Addendum completed by physician on da y of procedure. (MUST COMPLETE FOR ALL OUTPATIENTS), New H&P dictated by physician.. 13:22:25 Pre-procedure instructions explained to patient. 13:22:26 Pre-op teaching completed and patient verbalized understanding. 13:22:30 Family in waiting room. 13:22:33 Patient NPO since Midnight. 13:22:44 Patient allergic to No known allergies 13:22:50 Is the patient allergic to Iodine/contrast media? No. 13:22:54 Was the patient premedicated? No 13:22:56 Is patient on blood thinner?No 13:23:03 Patient diabetic? No. 13:23:10 ----Pre-sedation anethsthesia assessment.---- 13:23:15 Previous problem with sedation/anesthesia? No ? 13:23:18 Snore? No 13:23:21 Sleep apnea? No 13:23:24 Deviated septum? No 13:23:27 Opens mouth fully? Yes 13:23:30 Sticks out tongue? Yes 13:23:35 Airway obstruction? No ? 13:23:39 Dentures? No ? 13:26:44 Patient pain scale 0/10 ?. 13:26:55 IV patent on arrival in left forearm with 0.9% NaCl at [facility]. 13:27:03 Lab results completed and on chart. 13:29:04 Left chest area was prepped with chlora-prep and draped in sterile fashion 13:29:07 Alarms reviewed by R. N. 13:29:09 Sharps counted by scrub and verified by R.N. 13:32:23 [employer] account retention representative ANN CAMERON present for procedure. 13:32:32 Use device set TISH PPM 13:32:35 2-0 Ticron Multipack ([id number]) opened to sterile field. 13:32:36 3-0 Vicryl Single Pack [id number] opened to sterile field. 13:32:37 5-0 Monocryl PS2 [id number] opened to sterile field. 13:32:37 Cautery Tip Finishing Area Supervisor opened to sterile field. 13:32:39 Cautery Pushbutton Pencil opened to sterile field. 13:32:40 Mepilex Dressing ([id number]) opened to sterile field. 13:33:08 Pre sharps counted by scrub and verified by RN: Sutures: 7; Sponges: 5; Stick needles: 2; Skin needles: 2; Blade: 1; Cautery: 1 13:33:21 Grounding pad site Left thigh. 13:33:23 Grounding pad site free from injury. 13:33:37 0.9% NaCl 100 ml/hr I.V. was administered by Abebe Roth RN; Per physician; Verbal order read back and verified. 13:33:47 Oxygen 2 l/min etCO2 Nasal cannula was administered by Abebe Roth RN; for low 02 sats; Verbal order read back and verified. 13:34:17 Lidocaine 1% 20ml vial added to field was administered by Abebe Roth RN; for local anesthetic; Verbal order read back and verified. 13:34:46 Bupivacaine 0.5% 10 ml added to field was administered by Abebe Roth RN; for local anesthetic; Verbal order read back and verified. 13:35:05 Ancef (1Gm/50ml NS) 1 g I.V.P.B was administered by Abebe Roth RN; Per physician; Verbal order read back and verified. 13:35:20 Ancef Irrigation (1gm/500ml NS) 1 g Topical was administered by Abebe Roth RN; used for procedure; Verbal order read back and verified. 13:50:26 Physician arrived 13:50:27 --------ALL STOP TIME OUT------ 13:50:28 Final Timeout: patient, procedure, and site verified with staff and physician. All members of the team are in agreement. 13:50:36 Left chest site verified by team. 13:50:54 Fire Safety Assessment: A--An alcohol-based skin anteseptic being used preoperatively., B--The operative or invasive procedure is being performed above the xiphoid process or in the oropharynx., C--Open oxygen or nitrous oxide is being used. 13:51:03 Physical assessment completed. ASA score P 2 - A patient with mild systemic disease as per Jamari Park MD. 13:51:10 1) 90+ Normal kidney functon but urine findings or structural abnormalities or genetic trait point to kidney disease. 13:51:33 Versed 2 mg I.V. was administered by Abebe Roth RN; for sedation; Verbal order read back and verified. 13:51:38 Maximum allowable contrast dose (3.7 X eGFR X 0.75)250 ml. 13:51:44 Sedation plan: IV Moderate Sedation Medication:Versed, Fentanyl 13:51:45 Fentanyl 100 mcg I.V. was administered by Abebe Roth RN; for sedation; Verbal order read back and verified. 13:52:18 Procedure started. 13:53:58 Lidocaine 1% w/epi and Bupivacaine 0.5% was administered to left subclavicular area by Ford Duong MD . 13:54:10 Versed 2 mg I.V. was administered by Abebe Roth RN; for sedation; Verbal order read back and verified. 13:54:17 Fentanyl 100 mcg I.V. was administered by Abebe Roth RN; for sedation; Verbal order read back and verified. 13:55:18 Incision made to left subclavicular area. 13:55:36 Device pocket was reopened. 14:01:24 Ventricular lead repositioned. 14:02:43 Ventricular lead tested. 14:05:14 Ventricular lead attachment was completed with 2-0 ticron. 14:05:41 Subcutaneous closure was completed with 3-0 vicryl plus. 14:05:58 Skin closure was completed with 5-0 monocryl. 14:10:23 Parameters--Ventricular P/R Wave: 10.2mV. Current: 0.2mA; Threshold: 0.3V; Impedence: 1068OHMS. 14:11:38 Post sharps counted by scrub and verified by RN: Sutures: 7; Sponges: 5 ; Stick needles: 2; Skin needles: 2; Blade: 1; Cautery: 1 14:13:39 Lt Chest incision was dressed with Mepilex dressing. 14:24:18 Procedure ended.(Physican Out) 14:24:45 Fluoroscopy time 01.20 minutes. 14:24:55 Fluoroscopy dose: 102.3 mGy 14:24:55 Flurop Dose total: 102.3 14:25:06 Dose Area Product 1280.87 mGy/cm. 14:25:13 Contrast amount:Isovue 300 0ml. 14:25:16 Maximum allowable dose exceeded? No. 14:25:18 Sharps counted by scrub and verified by R.N. 14:25:33 Insertion/operative site no bleeding no hematoma. 14:25:44 Post-procedure physical assessment completed. ASA score P 2 - A patient with mild systemic disease as per Jamari Park MD. 14:25:53 Post procedure rhythm: paced 14:25:57 Estimated blood loss: 5 ml 14:26:37 Post procedure instruction explained to patient.Patient verbalizes understanding. 14:26:37 Patient needs reinforcement of post procedure teaching. 14:29:02 Procedure type changed to Cath procedure, Diagnostic procedure, PPM/ICD , Permanent Pacer Lead Repos., Sedation Charges, Moderate Sedation up to 30 minutes 14:29:52 Procedure and supply charges have been captured, reviewed, submitted an d are correct. 14:31:23 Procedure Complication : No complications 14:31:28 Vital chart was stopped 14:32:37 Operative report dictated upon procedure completion. 14:32:38 See physician's report for complete and final results. 14:32:40 Report given to Pre/Post Procedure Room. 14:32:44 Patient transfered to Pre/Post Procedure Room with Stretcher. 14:32:47 Procedure ended. 14:32:47 Full Disclosure recording stopped 14:32:51 End room use (Document Last) 14:34:24 Immobilizer Large opened to sterile field. Device Usage Item Name Manufacture Quantity Catalog Hospital Part Current Minimal Lot# / Number Charge Number Stock Stock Serial# Code 2-0 Ticron Ethicon 4 [id number] [id number] 5 Multipack ([id number]) 3-0 Vicryl Ethicon 1 [id number] [id number] 5 Single Pack [id number] 5-0 Monocryl Ethicon 1 [id number] [id number] 5 PS2 [id number] Cautery Tip Microtek 1 [id number] 5 Finishing [employer] Cautery Microtek 1 [id number] [id number] 5 [employer] Pencil Mepilex Cardinal 1 [id number] [id number] 5 [employer] ([id number]) Immobilizer Cardinal 1 [id number] [id number] [id number] 5 [facility] Signature Audit [place] Stage Time Signature Unsigned Intra-Procedure 05/29/2019 Susan 2:35:52 PM Dorothy RT(R) (CV) Intra-Procedure 05/29/2019 Abebe 2:36:46 PM Gonzalez ALONSO Intra-Procedure 05/29/2019 Jamari Mason 2:37:25 PM Bandar HI [facility] [address] [place] [address]
[~2019-05-29 11:20] MED LIST changes: +ZYLOPRIM300 MG PO
[2019-05-29 12:17] VITALS: BP 115/75; Ht 180.3 cm; Wt 114.5 kg
[2019-05-29 12:28] LABS: BASOPHILS 0.3 % (0-2); EOSINOPHILS 0.9 % (0-7); HEMATOCRIT 45.9 % (42.0-54.0); HEMOGLOBIN 15.7 g/dL (13.5-17.5); IMMATURE GRANULOCYTES 0.6 % (0-5); LYMPHOCYTES 29.2 % (15-50); MCH 32.6 pg (26.0-34.0); MCHC 34.2 g/dL (31.0-37.0); MCV 95.4 fL (80.0-100.0); MEAN PLATELET VOLUME 9.9 fL (7.4-10.4); MONOCYTES 10.4 % (2-11); NEUTROPHILS 58.6 % (40-80); PLATELET COUNT 149 10x3/uL (130-400); RBC 4.81 10x6/uL (4.20-6.10); WBC 6.6 10x3/uL (4.8-10.8)
[2019-05-29 12:39] LABS: CALC OSMOLALITY 281 mosm/kg (275-300); CALCIUM 9.3 mg/dL (8.5-10.1); CARBON DIOXIDE 27.5 mmol/L (21.0-32.0); CHLORIDE - SERUM 104 mmol/L (98-107); CREATININE - SERUM 0.9 mg/dL (0.6-1.3); GLUCOSE 104 mg/dL (74-106); POTASSIUM - SERUM 3.5 mmol/L (3.5-5.1); SODIUM 141 mmol/L (136-145); UREA NITROGEN 14 mg/dL (7-18); eGFR NON AFRICAN AMERICAN > 90 mL/min (90-120)
--- NOTE | 2019-05-29 14:43 | NUR ---
PT ARRIVES BY STRETCHER. PLACED ON MONITORS. LEFT ARM IN SLING. PT INSTRUCTED TO KEEP LEFT ARM STILL. ASSESSMENT COMPLETED. HEAD OF BED AT 30 DEGREES. NO NEEDS AT THIS TIME. DENIES PAIN.
--- NOTE | 2019-05-29 15:00 | NUR ---
PT SITTING UP EATING A SANDWICH. VSS. PT CONTINUES TO BE V-PACED. HEART RATE 82.
--- NOTE | 2019-05-29 15:32 | NUR ---
PIV D/C'D WITH CATH TIP INTACT. TOLERATED WELL. DISCUSSED DISCHARGE INSTRUCTIONS WITH PT. HE VOICED UNDERSTANDING. PT INSTRUCTED TO GET UP AND DRESSED. NO ASSISTANCE NEEDED. CALL LIGHT WITHIN REACH.
--- NOTE | 2019-05-29 16:00 | NUR ---
PT TAKEN OUT TO VEHICLE BY WHEELCHAIR. NO S/S OF DISTRESS NOTED. ALL BELONGINGS AND PAPERWORK IN HAND. LEFT ARM IN SLING.
--- NOTE | 2019-05-30 15:08 | OP ---
PATIENT NAME: JOHAN OAKLEY MEDICAL RECORD: [id number] :59 LOCATION:D.CAT ADMISSION DATE: SURGEON: SALO MORELOS MD DATE OF OPERATION: 05/29/2019 PROCEDURE: Repositioning of RV lead secondary to lead dislodgment. DESCRIPTION OF PROCEDURE: After the previous pocket was opened via Dr. Duong, fluoroscopy showed marked migration of the RV lead all the way across the tricuspid valve in the right atrium. We were easily able to reposition the right ventricular lead without difficulty. After adequate R waves of 10-11 and thresholds down to 0.3, the lead was then reattached to the ventricular pole on the generator and pocket was closed via Dr. Duong. IMPRESSION: Successful lead positioning and repositioning of RV lead on Johan Oakley. ESTIMATED BLOOD LOSS: Minimal. COMPLICATIONS: None. DISPOSITION: To recovery room stable. TRANSINT:[id number] Voice Confirmation ID: [id number] DOCUMENT ID: [id number] SALO MORELOS MD at 1508 CC: [id number] DICTATION DATE: 05/29/19 1413 FORK ASSEMBLER: 05/29/19 1547 DEP CLI 05/29/19 [id number] [place] [address]
--- NOTE | 2019-05-31 21:29 | OP ---
PATIENT NAME: SKYLAR OAKLEY MEDICAL RECORD: [id number] :59 LOCATION:D.CAT ADMISSION DATE: SURGEON: AMAN MEADOWS MD DATE OF OPERATION: 05/29/2019 PREOPERATIVE DIAGNOSES: 1. Complete heart block. 2. Ventricular lead migration. POSTOPERATIVE DIAGNOSES: 1. Complete heart block. 2. Ventricular lead migration. PROCEDURES: Opening of pacemaker pocket with lead revision. This is a cosurgeon case. Dr. Jamari Carr is the cigarette catcher. Dr. Aman Meadows is the surgeon. Due to the complexity to the case 2 attending surgeons were necessary to be in attendance. The risks, possible complications, and alternatives to the procedure were explained to the patient. He elects to proceed. ANESTHESIA: Local with IV sedation. COMPLICATIONS: None. OPERATIVE COURSE: The patient was seen in cardiac catheterization laboratory. The left chest was sterilely prepped and draped. A local anesthetic was used to infiltrate the skin and subcutaneous tissues overlying the port pocket. I incised the suture. I dissected down to the port pocket. I delivered the pacemaker. I took the wrench and I loosened up the ventricular lead. I then loosened up the suture from the white lead hamm to the underlying tissues. Dr. Jamari Carr then went about replacing the ventricular lead. Appropriate thresholds were obtained. I then placed the lead back in the ventricular dock of the pacemaker. I tightened down with the wrench. I tried to dislodge both leads and was unable to do so. I then sutured down the leads to the underlying pectoralis muscle with a 2-0 TiCron. The pacemaker generator and the leads were then placed in the pacemaker pocket with care paid to ensure that the leads were posterior to the pacemaker generator. I irrigated with normal saline and aspirated. There was no bleeding. I sutured the pacemaker down to the underlying pectoralis muscle with a 2-0 TiCron. The subdermis was approximated with interrupted 3-0 Vicryls. The skin was approximated with a running intracuticular 5-0 Monocryl and then the 3-0 Vicryl. OPERATIVE REPORT [id number] SKYLAR OAKLEY A sterile dressing was applied. The patient was then conveyed back to the cardiac catheterization recovery area. TRANSINT:[id number] Voice Confirmation ID: [id number] DOCUMENT ID: [id number] AMAN MEADOWS MD at 2129 CC: JAMARI MORELOS MD [id number] DICTATION DATE: 05/29/19 1656 PRECISE WINDER: 05/30/19 0106 DEP CLI 05/29/19 [id number] [place] [address]
== END 2019-05-29 16:00 | disposition home or self-care (01) ==
LOC: D.CATH 11:20
PROVIDERS: ATTEND Internal Medicine Interventional Cardiology
DX: T82.128A Displacement of other cardiac electronic device, initial encounter (principal); Y83.9 Surgical procedure, unspecified as the cause of abnormal reaction of the patient, or of later complication, without mention of misadventure at the time of the procedure; I44.2 Atrioventricular block, complete

== ENCOUNTER → 2019-06-07 09:34 | Outpatient (CLI) | payer BC ==
[2019-05-29 12:17] VITALS: BMI 35.2
== END | disposition home or self-care (01) ==
LOC: D.US 09:34
PROVIDERS: ATTEND Nurse Practitioner Adult Health
DX: R22.42 Localized swelling, mass and lump, left lower limb (principal); M79.662 Pain in left lower leg